=== PATIENT | male | born 1975 | race Caucasian/White ===

== ENCOUNTER → 2018-06-05 08:01 | Outpatient (CLI) | payer OTHER, SELFPAY ==
--- NOTE | 2018-06-05 15:51 | NEURO ---
NCS and/or EMG Patient Report Ordering Doctor: Matthew Burk DATE OF SERVICE: 06/05/18 Fede Pedersen is a 42-year-old male presents for electrodiagnostic testing of the upper limbs he has chief complaint of numbness and tingling in both hands Electrodiagnostic findings: On nerve conduction study, the median motor nerve demonstrates normal distal latency, amplitude and conduction velocity bilaterally normal ulnar motor response bilaterally median and ulnar F waves are normal. Sensory responses within normal limits. Needle EMG testing shows no evidence of denervation in any muscles tested. Electrodiagnostic impression: This is a normal electrodiagnostic study of the upper limbs. There is no electrodiagnostic evidence for peripheral neuropathy, including carpal tunnel syndrome. There is no electrodiagnostic evidence for cervical radiculopathy. If there are any further questions, please do not hesitate to contact me.
== END ==
PROVIDERS: Family Provider Family Medicine; PCP Family Medicine; Visit Provider Family Medicine
DX: R29.898 Other symptoms and signs involving the musculoskeletal system (principal)
CPT/HCPCS: 95886; 95912

== ENCOUNTER → 2018-07-30 06:23 | Outpatient (CLI) | payer OTHER, SELFPAY ==
--- NOTE | 2018-07-30 06:36 | RAD_ITS ---
STUDY: X-RAY - LUMBAR SPINE REASON FOR EXAM: Male, 43 years old. Pain while sitting TECHNIQUE: 6 view(s) of the lumbar spine were obtained. COMPARISON: None FINDINGS: Normal lumbar lordosis. There is no substantial scoliosis. There is a normal alignment of the vertebrae. There is mild spondylosis. There is no significant disc space narrowing. Normal disc space heights. The soft tissue structures are unremarkable. RAD/L/S Spine Min 4 Views IMPRESSION: Mild multilevel degenerative change. Electronically Signed: Marie Medina MD at 2:54 EDT Tel , Service support ,
--- NOTE | 2018-07-30 06:36 | RAD_ITS ---
STUDY: X-RAY - CERVICAL SPINE REASON FOR EXAM: Male, 43 years old. Pain TECHNIQUE: 6 view(s) of the cervical spine were obtained. COMPARISON: None FINDINGS: There are degenerative changes of the anterior atlantoaxial articulation. Normal odontoid process. There is straightening of the normal cervical lordosis. There is spondylosis. Most significant at C6-C7. Normal disc space heights. Normal visualized intervertebral neuroforamina. The soft tissue structures are unremarkable. RAD/Cerv Spine 4 or 5 Views IMPRESSION: Straightening of the physiologic lordosis which can be associated with muscle spasm or pain. Multilevel degenerative change with arterial osteophyte C6-C7. Electronically Signed: Marie Medina MD at 2:16 EDT Tel , Service support ,
[2018-07-30 07:38] LABS: Erythrocyte Sedimentation Rate < 1 mm/hr (0-15)
[2018-07-30 07:52] LABS: CPK Total, Creatine Kinase 96 U/L (39-308); CRP < 2.90 mg/L (0.0-3.0); Thyroid Stim Hormone (TSH) 2.06 uIU/mL (0.358-3.74)
[2018-07-30 08:16] LABS: Vitamin D,25 Hydroxy 29.3 ng/mL (29.95-100.01)
[2018-07-31 15:14] LABS: ANTINUCLEAR ANTIBODIES DIRECT Negative (Negative)
== END ==
PROVIDERS: Physical Medicine & Rehabilitation; Family Provider Family Medicine; PCP Family Medicine; Referring Provider Family Medicine; Visit Provider Family Medicine
DX: M54.2 Cervicalgia (principal); M79.10 Myalgia, unspecified site
CPT/HCPCS: 36415; 72050; 72110; 82306; 82550; 84443; 85652; 86038; 86140

== ENCOUNTER → 2018-10-03 12:39 | Outpatient (CLI) | payer OTHER, SELFPAY ==
--- NOTE | 2018-10-03 12:46 | CT_ITS ---
STUDY: CT BRAIN WITHOUT CONTRAST REASON FOR EXAM: Male, 43 years old. Swelling behind the left ear. Painful to touch. RADIATION DOSAGE (If Supplied By Facility): CTDIvol = ( 60.81 ) mGy, DLP = ( 4450.77 ) mGycm TECHNIQUE: Transaxial CT imaging of the brain was performed without administration of intravenous contrast material. Individualized dose optimization techniques were used for this CT. COMPARISON: None. FINDINGS: Normal soft tissue structures. Normal calvarium. Normal size ventricles and extra-axial spaces for the patient's age. Normal white matter tracts of the cerebral hemispheres. Normal basal ganglia and thalami. Normal brainstem. Normal cerebellum. There is no intracranial hemorrhage. There are no findings of an acute ischemic infarction. Normal visualized paranasal sinuses. CT/Brain/Head without Contrast IMPRESSION: Normal unenhanced CT scan of the brain. Electronically Signed: Giuseppe Cunningham MD at 15:10 EST Tel [phone], Service support ,
--- OUTSIDE RECORDS SUMMARY | 2018-11-19 08:00 | XMS RPT_ITS ---
:1975 Author Organization [place] Care Team Providers Name Role Phone Matthew Burk Attending Unavailable Matthew Burk Referring Unavailable Matthew Burk Primary Care Unavailable Matthew Burk Attending Unavailable Matthew Burk Referring Unavailable Matthew Burk Primary Care Unavailable ARAMIS DANIEL Attending Unavailable ARAMIS DANIEL Referring Unavailable Matthew Burk Primary Care Unavailable ARAMSI DANIEL Attending Unavailable ARAMIS DANIEL Referring Unavailable Matthew Burk Primary Care Unavailable PROBLEMS PROBLEMS DATE TYPE CONDITION / CODE ATTENDING STATUS SOURCE 11/01/2018 Unknown M54.2 - ARAMIS DANIEL Active [place] [facility]ervical[facility] / Community M54.2(ICD-10) Hospital Repository 11/01/2018 Unknown M54.9 - NAFARAMIS SHOEMAKER Active [place] Dorsalgia, Community unspecified / Hospital M54.9(ICD-10) Repository PROCEDURES PROCEDURES No Procedure Records FoundRESULTS RESULTS INITAL EVALUATION (1) Observed: 10/07/2018 Status: F Source: [place] - PT 6:45 AM [facility] REPOSITORY [facility] [address] [place] [address] Fax REHABILITATION SERVICES INITIAL EVALUATION MR#: [id number] Acct: [id number] Name: LOPEZ PEDERSEN Rep #: [id number] : 1975 43 From: Lukas Mas DPT, OCS, CSCS Referring Dr.: ARAMIS DANIEL Status: REG RCR Insurance: [employer] SELF PAY INSURANCE Patient's Visit Information LOPEZ PEDERSEN is a 43 year old M referred to Physical Therapy by Aramis Daniel with a diagnosis of neck and LBP. Date of Evaluation: 10/04/18 Physical Therapist: Lukas Mas DPT, OCS, CSCS - Visit Plan Frequency: 3x /Week Duration: 4-6 Weeks Plan: 3x/week for 3-6 weeks for.. 1. [place] based ext ex for LB and neck with progression of forces, mobs ext necka dn LB as needed. 2. Posture and body mechanics progressing to strengthening to HEP. 3. Modalities for STM L neck and ES with MH for LB or neck if necessary. - Subjective Findings: Has necka nd LBP. It is constant. Been there a while(years) adn is building. X ray showed OA but nothing else. did CT scan of head but no results yet. Has had Carpal tunnel test which was fine but L arm seems to have poor circulation and is always cold and gets numbness in last two fingers intermittently one time per month. Neck Pain is L sided into UT. It is 2-3/10 and is on ibuprofen, previously4-5/10. Worse with heavy physical activity. LBP constant at 3/10 and worse driving. R leg on occasion is numb a couple times per week. Sleep is interrupted as he wakes up now and then with neck pain a couple times per week. 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 Is sitting more this time of year. Also up and around during the year and hasn't noticed wither worse. Maybe worse when on large equipment. Basic ADLs are OK. Activities are normal. Enjoys farming at home and has 2 and 4 yo. Worse if does a lot at home. Better when sitting around. No problem coughing or sneezing. No bowel or bladder problems. - Pain neck pain Pain Intensity (Out of 10): 3 Pain Intensity Range: 2, 3 LBP Pain Intensity (Out of 10): 3 Pain Intensity Range: 3, 4 - Objective C/S AROM ext painful 48 and L rotation 52 painful, R rotation 80, SB painful to the left. Flexion full. LB AROM : ext max limited lower segments flex adn ext and painful ext. SB avoids L45S1 movements but not painful. reflexes bi and tri and patella and achilles 2/3. Sensation WNL in UE and LE to gross light touch today. Strength is 5/5 LE adn 4+ UE except triceps whcih is 4/5. UE AROM WFL adn LE AROM WFL, tightness in pecs and HS and quad. Repeated motion c/s: c/s protrusion: NE. c/s retraction: B motion rot and ext adn better tricep strength. LB repeated motion: PPU...Better motion adn pain. + L c/s compression. - slump and SLR test. - Goals Goal 1:: LB and neck ROM fulla dn without pain Goal Time Frame: 4-6 Weeks Goal 2:: Sleep without interruption to pain at night. Goal Time Frame: 4-6 Weeks Goal 3:: Pt I in approp ex and body mechanics to minimize future problems Goal Time Frame: 4-6 Weeks Goal 4:: Pt feel 90% better in necka dn LB and arm and leg numbness abolished. Goal Time Frame: 4-6 Weeks - Rehabilitation Potential Physical Therapy Diagnosis: Likely discal pathology LB and neck Rehabilitation Potential: Fair - Anticipated Interventions Patient/Client Instruction: Educate patient on: Condition, Plan of Care For the Purpose of:: To decrease pain, To increase ROM, To increase tolerance to activity/condition/position Therapeutic Exercise to Include: Strength training, Flexibilty training, Dynamic Lumbar Stabilization, [place] Exercises For the Purpose of:: To decrease pain, To increase ROM, To increase tolerance to activity/condition/position, To improve ability of physical actions for home/community/work/leisure Manual Therapy Techniques to Include: Mobilization, Soft tissue mobilization Comment: ext necka nd LB grade up to 4 For the Purpose of:: To decrease pain, To increase ROM TENS: Yes Thermo therapy (hot pack): Yes For the Purpose of:: To decrease pain Thank you for the opportunity to evaluate your patient. For Medicare and Medicare HMO plans, please review the plan of care and approve it. It will need to be FAXED BACK to us at [phone] for Medicare purposes. For Medicare only, by signing this I certify the plan of care. Please let me know if there are questions or concerns regarding this plan of care. Physician Signature: Date: <Electronically signed by Lukas Mas DPT, OCS, CSCS> 10/07/18 0645 CC: ARAMIS DANIEL; Matthew Burk MD EBG Signed BRAIN/HEAD WITHOUT Observed: 10/03/2018 Status: F Source: [place] CONTRAST 12:46 PM [facility] REPOSITORY [facility] Imaging Services [address] [place] [address] Brain/Head without Contrast MR#: [id number] Acct: [id number] Name: TARAHHYACINTH STRONGRADHA Lam Rep #: [id number] : 1975 M 43 From: Giuseppe Cunningham MD PCP: Matthew Burk MD Status: REG CLI Study: Brain/Head without Contrast Date of Exam: 10/03/18 Exam# [id number] Ordering Dr: Aramis Daniel STUDY: CT BRAIN WITHOUT CONTRAST REASON FOR EXAM: Male, 43 years old. Swelling behind the left ear. Painful to touch. RADIATION DOSAGE (If Supplied By Facility): CTDIvol = ( 60.81 ) mGy, DLP = ( 4450.77 ) mGycm TECHNIQUE: Transaxial CT imaging of the brain was performed without administration of intravenous contrast material. Individualized dose optimization techniques were used for this CT. COMPARISON: None. FINDINGS: Normal soft tissue structures. Normal calvarium. Normal size ventricles and extra-axial spaces for the patient's age. Normal white matter tracts of the cerebral hemispheres. Normal basal ganglia and thalami. Normal brainstem. Normal cerebellum. There is no intracranial hemorrhage. There are no findings of an acute ischemic infarction. Normal visualized paranasal sinuses. CT/Brain/Head without Contrast IMPRESSION: Normal unenhanced CT scan of the brain. Electronically Signed: Giuseppe Cunningham MD at 15:10 EST Tel [phone], Service support , CC: ARAMIS DANIEL; Matthew Burk MD [employer] Firer: Signed CERV SPINE 4 OR 5 Observed: 07/30/2018 Status: F Source: [place] VIEWS 6:36 AM [facility] REPOSITORY [facility] Imaging Services [address] [place] [address] Cerv Spine 4 or 5 Views MR#: [id number] Acct: [id number] Name: LOPEZ PEDERSEN Rep #: [id number] : 1975 M 43 From: Marie Medina MD PCP: Matthew Burk MD Status: REG CLI Study: Cerv Spine 4 or 5 Views Date of Exam: 07/30/18 Exam# [id number] Ordering Dr: Matthew Burk MD STUDY: X-RAY - CERVICAL SPINE REASON FOR EXAM: Male, 43 years old. Pain TECHNIQUE: 6 view(s) of the cervical spine were obtained. COMPARISON: None FINDINGS: There are degenerative changes of the anterior atlantoaxial articulation. Normal odontoid process. There is straightening of the normal cervical lordosis. There is spondylosis. Most significant at C6-C7. Normal disc space heights. Normal visualized intervertebral neuroforamina. The soft tissue structures are unremarkable. RAD/Cerv Spine 4 or 5 Views IMPRESSION: Straightening of the physiologic lordosis which can be associated with muscle spasm or pain. Multilevel degenerative change with arterial osteophyte C6-C7. Electronically Signed: Marie Medina MD at 2:16 EDT Tel , Service support , CC: Matthew Burk MD [employer] Firer: Signed L/S SPINE MIN 4 Observed: 07/30/2018 Status: F Source: [place] VIEWS 6:36 AM [facility] REPOSITORY [facility] Imaging Services [address] [place] [address] L/S Spine Min 4 Views MR#: [id number] Acct: [id number] Name: ANSHULLOPEZ Genaro Rep #: [id number] : 1975 M 43 From: Marie Medina MD PCP: Matthew Burk MD Status: REG CLI Study: L/S Spine Min 4 Views Date of Exam: 07/30/18 Exam# [id number] Ordering Dr: Matthew Burk MD STUDY: X-RAY - LUMBAR SPINE REASON FOR EXAM: Male, 43 years old. Pain while sitting TECHNIQUE: 6 view(s) of the lumbar spine were obtained. COMPARISON: None FINDINGS: Normal lumbar lordosis. There is no substantial scoliosis. There is a normal alignment of the vertebrae. There is mild spondylosis. There is no significant disc space narrowing. Normal disc space heights. The soft tissue structures are unremarkable. RAD/L/S Spine Min 4 Views IMPRESSION: Mild multilevel degenerative change. Electronically Signed: Marie Medina MD at 2:54 EDT Tel , Service support , CC: Matthew Burk MD [employer] Firer: Signed ERYTHROCYTE SED RATE Collected: 07/30/2018 Status: F Source: [place] 6:29 AM [facility] REPOSITORY TYPE CODE TESTS RESULT OUT OF RANGE REFERENCE UNITS LAB L102.0000 0-15 mm/hr Normal SED RATE < 1 Performed By: #### L101.9900 #### [facility] [address] [place], [place], [address] CPK TOTAL, CREATINE Collected: 07/30/2018 Status: F Source: [place] KINASE 6:29 AM [facility] REPOSITORY TYPE CODE TESTS RESULT OUT OF RANGE REFERENCE UNITS LAB L501.3620 39-308 U/L Normal CPK TOTAL 96 Performed By: #### L501.3620, L501.6710, L501.9520 #### [facility] [address] [place], [place], [address] CRP Collected: 07/30/2018 Status: F Source: [place] 6:29 AM [facility] REPOSITORY TYPE CODE TESTS RESULT OUT OF RANGE REFERENCE UNITS LAB L501.6710 0.0-3.0 mg/L Normal < 2.90 C-REACTIVE PROT Result Comment: C-Reactive Protein (CRP) provides useful information for the diagnosis, therapy and monitoring of inflammatory processes and associated diseases. For the evaluation of Relative Risk for Cardiovascular Disease, a High Sensitivity CRP (HSCRP) should be ordered. Performed By: #### L501.3620, L501.6710, L501.9520 #### [facility] [address] [place], [place], [address] THYROID STIM HORMONE Collected: 07/30/2018 Status: F Source: [place] (TSH) 6:29 AM [facility] REPOSITORY TYPE CODE TESTS RESULT OUT OF RANGE REFERENCE UNITS LAB L501.9520 0.358-3.74 uIU/mL Normal TSH 2.06 Performed By: #### L501.3620, L501.6710, L501.9520 #### [facility] [address] [facility] [place], [address] VITAMIN D,25 HYDROXY Collected: 07/30/2018 Status: F Source: [place] 6:29 AM [facility] REPOSITORY TYPE CODE TESTS RESULT OUT OF REFERENCE UNITS RANGE LAB L506.1000 29.95-100.01 ng/mL Low Vitamin D 29.3 25-OH Result Comment: Vitamin D 25(OH) Status Range Deficiency <20 ng/mL (50nmol/L) Insuffciency 20 - 30 ng/mL (50 - 75 nmol/L) Sufficiency 30 - 100 ng/mL (75 - 250 nmol/L) Toxicity >100 ng/mL (>250 nmol/L) Performed By: #### L506.1000 #### [facility] [address] [place] [address] [place], [address] ANTINUCLEAR ANTIBODIES Collected: 07/30/2018 Status: F Source: [place] DIRECT 6:29 AM [facility] REPOSITORY TYPE CODE TESTS RESULT OUT OF RANGE REFERENCE UNITS LAB L3100.5475 Negative Normal Negative GAL-DIRECT Result Comment: Performed at: - [facility] [address] [id number] Sustainable Systems Analyst: Roberto Salazar PhD, Phone: [phone] Performed By: #### L3100.5475 #### [facility] (refer to report for specific site) refer to report for address and phone number NCS AND/OR EMG Observed: 06/05/2018 Status: F Source: [place] PATIENT 4:10 PM [facility] REPOSITORY [facility] Pulmonary Services/Neurology [address] [place] [address] MR#: [id number] Acct: [id number] Name: LOPEZ PEDERSEN Rep #: [id number] : 1975 42 From: Thomas Biggs MD Referring Dr: Matthew Burk MD Status: REG CLI Ordering Dr: Date: Location: [facility] Sex: M C NCS and/or EMG Patient Report Ordering Doctor: Matthew Burk DATE OF SERVICE: 06/05/18 Lopez Pedersen is a 42-year-old male presents for electrodiagnostic testing of the upper limbs he has chief complaint of numbness and tingling in both hands Electrodiagnostic findings: On nerve conduction study, the median motor nerve demonstrates normal distal latency, amplitude and conduction velocity bilaterally normal ulnar motor response bilaterally median and ulnar F waves are normal. Sensory responses within normal limits. Needle EMG testing shows no evidence of denervation in any muscles tested. Electrodiagnostic impression: This is a normal electrodiagnostic study of the upper limbs. There is no electrodiagnostic evidence for peripheral neuropathy, including carpal tunnel syndrome. There is no electrodiagnostic evidence for cervical radiculopathy. If there are any further questions, please do not hesitate to contact me. 06/05/18 1610 <Electronically signed by Thomas Biggs MD> Date Thomas Biggs MD CC: Thomas Biggs; Matthew Burk MD Date Dictated: 06/05/18 155 Date Transcribed: 06/05/181550 [employer] Firer: ORION Signed ALLERGIES ALLERGIES DATE TYPE / CODE NAME / CODE REACTION SEVERITY SOURCE 07/21/2015 Drug No Known Unknown [facility] Allergy/4160 Allergies/F00 Hospital 15213(SNOMED 9043329(RXNOR Repository CT) M) ENCOUNTERS ENCOUNTERS ADMIT/DISCHARGE ACCOUNT ADMITTING ENCOUNTER LOCATION SOURCE NUMBER CLASS 11/01/2018 [id number] Ambulatory [place] [facility] ing:PT Repository 10/03/2018 [id number] Ambulatory [place] [facility] ing:CT Repository 07/30/2018 [id number] Ambulatory [place] [facility] ing:LAB Repository 06/05/2018 [id number] Ambulatory [place] 1 [facility] ing:PSN Repository PAYERS PAYERS ENCOUNTER GUARANTOR PAYER SUBSCRIBER SOURCE 11/01/2018 LOPEZ Lam Primary LOPEZ Knight [id number] Insurance:[place] ANDREWSB: [facility] RDAPPLE Number: [id number] [id number] Repository [address]Bwo: (330) Date:3496-00-92[phone] (HP) [id number] [address]YS: 11/01/2018 Secondary NOT GIVENUNK [place] Insurance:SELF PAY [facility]: Effective Repository Date:2018-09-27 10/03/2018 LOPEZ D Primary LOPEZ D [place] [id number] Insurance:AETNAPolicy HOFSTETTERDOB: Community MIKEY RDAPPLE Number: [id number] [id number] Repository [address]Moo: (330) Date:5098-02-95TP [phone] (HP) [id number] [place] [address]WA: 10/03/2018 Secondary NOT GIVENUNK [place] Insurance:SELF PAY [facility] Number: Effective Repository Date:2018-09-24 07/30/2018 LOPEZ D Primary LOPEZ D [place] [id number] Insurance:AETNAPolicy HOFSTETTERDOB: Community MIKEY RDAPPLE Number: [id number] [id number] Repository [address]Myz: (330) Date:2401-60-79[phone] (HP) [id number] [place] [address]QU: 07/30/2018 Secondary NOT GIVENUNK [place] Insurance:SELF PAY [facility] Number: Effective Repository Date:2018-07-30 06/05/2018 LOPEZ D Primary LOPEZ D [place] [id number] Insurance:AETNAPolicy HOFSTETTERDOB: Community MIKEY RDAPPLE Number: [id number] [id number] Repository [address]Jst: (330) Date:0489-52-35ZK [phone] (HP) [id number] [place] [address]RG: 06/05/2018 Secondary NOT GIVENUNK [place] Insurance:SELF PAY [facility] Number: Effective Repository Date:2018-02-18
== END ==
PROVIDERS: Family Provider Family Medicine; PCP Family Medicine; Referring Provider Physical Medicine & Rehabilitation; Visit Provider Physical Medicine & Rehabilitation
DX: H70.92 Unspecified mastoiditis, left ear (principal)
CPT/HCPCS: 70450

== ENCOUNTER 2018-11-15 08:30 | Outpatient (RCR) | payer OTHER, SELFPAY ==
--- NOTE | 2018-10-04 07:55 | HP.PTEVAL ---
Patient's Visit Information LOPEZ LANDERS is a 43 year old M referred to Physical Therapy by Aramis Tim with a diagnosis of neck and LBP. Date of Evaluation: 10/04/18 Physical Therapist: Lukas Mas, JOSE FRANCISCOT, OCS, CSCS - Visit Plan Frequency: 3x /Week Duration: 4-6 Weeks Plan: 3x/week for 3-6 weeks for.. 1. [place] based ext ex for LB and neck with progression of forces, mobs ext necka dn LB as needed. 2. Posture and body mechanics progressing to strengthening to HEP. 3. Modalities for STM L neck and ES with MH for LB or neck if necessary. - Subjective Findings: Has necka nd LBP. It is constant. Been there a while(years) adn is building. X ray showed OA but nothing else. did CT scan of head but no results yet. Has had Carpal tunnel test which was fine but L arm seems to have poor circulation and is always cold and gets numbness in last two fingers intermittently one time per month. Neck Pain is L sided into UT. It is 2-3/10 and is on ibuprofen, previously4-5/10. Worse with heavy physical activity. LBP constant at 3/10 and worse driving. R leg on occasion is numb a couple times per week. Sleep is interrupted as he wakes up now and then with neck pain a couple times per week. 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 Is sitting more this time of year. Also up and around during the year and hasn't noticed wither worse. Maybe worse when on large equipment. Basic ADLs are OK. Activities are normal. Enjoys farming at home and has 2 and 4 yo. Worse if does a lot at home. Better when sitting around. No problem coughing or sneezing. No bowel or bladder problems. - Pain neck pain Pain Intensity (Out of 10): 3 Pain Intensity Range: 2, 3 LBP Pain Intensity (Out of 10): 3 Pain Intensity Range: 3, 4 - Objective C/S AROM ext painful 48 and L rotation 52 painful, R rotation 80, SB painful to the left. Flexion full. LB AROM : ext max limited lower segments flex adn ext and painful ext. SB avoids [id number] movements but not painful. reflexes bi and tri and patella and achilles 2/3. Sensation WNL in UE and LE to gross light touch today. Strength is 5/5 LE adn 4+ UE except triceps whcih is 4/5. UE AROM WFL adn LE AROM WFL, tightness in pecs and HS and quad. Repeated motion c/s: c/s protrusion: NE. c/s retraction: B motion rot and ext adn better tricep strength. LB repeated motion: PPU...Better motion adn pain. + L c/s compression. - slump and SLR test. - Goals Goal 1:: LB and neck ROM fulla dn without pain Goal Time Frame: 4-6 Weeks Goal 2:: Sleep without interruption to pain at night. Goal Time Frame: 4-6 Weeks Goal 3:: Pt I in approp ex and body mechanics to minimize future problems Goal Time Frame: 4-6 Weeks Goal 4:: Pt feel 90% better in necka dn LB and arm and leg numbness abolished. Goal Time Frame: 4-6 Weeks - Rehabilitation Potential Physical Therapy Diagnosis: Likely discal pathology LB and neck Rehabilitation Potential: Fair - Anticipated Interventions Patient/Client Instruction: Educate patient on: Condition, Plan of Care For the Purpose of:: To decrease pain, To increase ROM, To increase tolerance to activity/condition/position Therapeutic Exercise to Include: Strength training, Flexibilty training, Dynamic Lumbar Stabilization, [place] Exercises For the Purpose of:: To decrease pain, To increase ROM, To increase tolerance to activity/condition/position, To improve ability of physical actions for home/community/work/leisure Manual Therapy Techniques to Include: Mobilization, Soft tissue mobilization Comment: ext necka nd LB grade up to 4 For the Purpose of:: To decrease pain, To increase ROM TENS: Yes Thermo therapy (hot pack): Yes For the Purpose of:: To decrease pain Thank you for the opportunity to evaluate your patient. For Medicare and Medicare HMO plans, please review the plan of care and approve it. It will need to be FAXED BACK to us at [phone] for Medicare purposes. For Medicare only, by signing this I certify the plan of care. Please let me know if there are questions or concerns regarding this plan of care. Physician Signature: Date:
--- NOTE | 2018-11-15 09:00 | HP.PTREVAL_ITS ---
Aramis Tim, It has been my pleasure to treat LOPEZ LANDERS over the last 13 visits for neck and LBP. Please see the progress note below for an update on the physical therapy plan of care! Subjective: Travelling much better this time with back. Back is best it has been in long time. Pain 1/10 constantly last couple weeks. Slightly worse with stress adn job demands since returning. Sleep is good, better. Tolerating things much better. 2/10 this week in morning which is the worst. Exercises help manage pain and bring it down to /10. To doctor next Sunday. Will have CT adn blood work. Objective/Function: c/s ROM: 65 R rot, 60 L rot, 50 ext. 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 L/S ext still mod imited in ext adn central pain, others tight but not painful. Strength UE adn LE is good. OVERALL STILL CONSTANT PAIN AND STIFF. ROM NECK ADN LB NOT COMING ALONG QUICKLY. 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 Plan Plan: PT TO F/U WITH DOCTOR NEXT WEEK FOR OTHER MEDICAL OPTIONS. CAN CONTINUE WITH PT IF DESIRED BY DOCTORS FOR 2X/WEEK INCREASE AGGRESSIVENESS OF GYMS TRENGTH, FLEXIBILITY AND EXT MOBS NECK AND LB OR POOL BASED THERAPY. Pt to call after doctor visit. Goals Goal 1:: LB and neck ROM fulla dn without pain Goal Time Frame: 4-6 Weeks Goal Progress: Not Progressing Goal 2:: Sleep without interruption to pain at night. Goal Time Frame: 4-6 Weeks Goal Progress: Goal Met Goal 3:: Pt I in approp ex and body mechanics to minimize future problems Goal Time Frame: 4-6 Weeks Goal Progress: Goal Met Goal 4:: Pt feel 90% better in necka dn LB and arm and leg numbness abolished. Goal Time Frame: 4-6 Weeks Goal Progress: Progressing, slowly Goal 5:: Full c/s rotation without feeling blocked adn full ext to work without increasing symptoms. Goal Time Frame: 2-4 Weeks Goal Progress: Not Progressing Anticipated Interventions Patient/Client Instruction: Educate patient on: Condition, Plan of Care For the Purpose of:: To decrease pain, To increase ROM, To increase tolerance to activity/condition/position Therapeutic Exercise to Include: Strength training, Flexibilty training, Dynamic Lumbar Stabilization, [place] Exercises For the Purpose of:: To decrease pain, To increase ROM, To increase tolerance to activity/condition/position, To improve ability of physical actions for home/community/work/leisure Manual Therapy Techniques to Include: Mobilization, Soft tissue mobilization Comment: ext necka nd LB grade up to 4 For the Purpose of:: To decrease pain, To increase ROM TENS: Yes Thermo therapy (hot pack): Yes For the Purpose of:: To decrease pain Please do not hesitate to contact me at [phone] by phone or if you have questions or concerns regarding this new plan of care! Sincerely, Lukas Mas, DPT, OCS, CSCS
--- NOTE | 2018-11-26 10:23 | HP.PT.NRP ---
HP - Discharge Summary (1) - Patient Information LOPEZ LANDERS was seen in my office for initial evaluation on 10/04/18. The following Plan of Care was established for this patient: Initial Frequency: 3x /Week Initial Duration: 4-6 Weeks - Anticipated Interventions Patient/Client Instruction: Educate patient on: Condition, Plan of Care For the Purpose of:: To decrease pain, To increase ROM, To increase tolerance to activity/condition/position Therapeutic Exercise to Include: Strength training, Flexibilty training, Dynamic Lumbar Stabilization, Javier Exercises For the Purpose of:: To decrease pain, To increase ROM, To increase tolerance to activity/condition/position, To improve ability of physical actions for home/community/work/leisure Manual Therapy Techniques to Include: Mobilization, Soft tissue mobilization Comment: ext necka nd LB grade up to 4 For the Purpose of:: To decrease pain, To increase ROM TENS: Yes Thermo therapy (hot pack): Yes For the Purpose of:: To decrease pain This patient was last seen in our office 11/15/18. Pertinent comments regarding their Physical therapy will appear below: pt seen for 13 visits and made minimal progress. Rechecked last visit and sent back to doctor. Pt has called to state that doctor wants no more PT and to be discharged. At this point I will be discontinuing this patient from physical therapy. I would be happy to see this patient again in the future if found appropriate by the physician. Thank you! Lukas Mas, DPT, OCS, CSCS
== END 2018-11-15 19:00 | disposition home or self-care (01) ==
LOC: PT 08:30
PROVIDERS: Family Provider Family Medicine; PCP Family Medicine; Referring Provider Physical Medicine & Rehabilitation; Visit Provider Physical Medicine & Rehabilitation
DX: M54.9 Dorsalgia, unspecified (principal); M54.2 Cervicalgia
CPT/HCPCS: 97110; 97162; 97530

== ENCOUNTER 2020-01-09 08:22 | Day surgery (SDC) | payer OTHER, SELFPAY ==
--- NOTE | 2020-01-02 04:47 | HP_ITS ---
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 Required: No Is patient in pain?: No Allergies No Known Allergies Allergy (Verified 01/02/20 08:27) Medications magnesium 30 mg tablet 30 mg PO DAILY 09/14/19 [History Confirmed 01/02/20] [facility] Medical History Back pain (Acute) Hay fever (Acute) Hemorrhoids (Acute) Hx of chest pain (Acute) Seasonal allergies (Acute) Shoulder pain (Acute) hx of normal stress test (Acute) Surgical History S/P appendectomy (Acute) S/P tonsillectomy (Acute) Status post arthroscopy of right shoulder (Acute) Family History Father Diabetes Heart disease Social History (Updated 01/02/20 @ 16:[address] Dennis Gómez MD) Smoking Status: Never smoker alcohol intake: never HPI HPI HPI: LOPEZ LANDERS, is a 44 M who presents to the office today for HPI HPI Surgical H&P: Yes HPI: LOPEZ LANDERS, is a 44 M who presents to the office today for rectal bleeding and GERD. The patient notes that he has been having rectal bleeding for about a year. He has taken unkl-ukr-twgbkdi hemorrhoid cream and he reports this is helped. He reports no pain during defecation. He says the blood is bright red. He denies any abdominal pain. He is never had a colonoscopy. The patient also notes that he has had longstanding GERD and takes occasional PPI. ROS General General: Yes fatigue; no weight change Musc Musculoskeletal: Yes back problems and arthritis Cardio Cardiovascular: No murmur, pacemaker, heart disease, atrial fibrillation, high blood pressure, heart attack, heart stent, palpitations, shortness of breat with exertion or chest pain Psych Psychiatric: No depression or anxiety Resp Respiratory: No shortness of breath, No sleep apnea, No cough, No COPD, No asthma, No emphysema, No wheezing Gastro Gastrointestinal: No abdominal pain, No nausea or vomiting, Yes diarrhea, No constipation, Yes blood in stool, Yes acid reflux, Yes hemorrhoids, No ulcers, No gallbladder problem, No black,tarry stools Brian Hematologic: No blood thinners Exam Const General: cooperative Orientation: alert, oriented x3 Resp Effort & Inspection: normal respiratory effort Auscultation: clear to auscultation bilaterally Cardio Rate: regular rate Rhythm: regular rhythm Heart Sounds: no murmurs GI Inspection: non-distended Palpation: soft, nontender Rectal Exam: visual inspection normal, normal sphincter tone, No hemorrhoids Assessment & Plan Problems 1. Rectal bleeding K62.5 2. GERD (gastroesophageal reflux disease) K21.9 Plan The patient has longstanding GERD and would like EGD at the same time of his colonoscopy. The patient did not have any hemorrhoids or fissure on rectal exam. I do recommend colonoscopy to Rule out malignancy as a source of his rectal bleeding. I explained endoscopy in detail to the patient. I explained the risks including but not limited to stroke or heart attack with anesthesia, perforation of the GI tract, bleeding, infection. I explained that any of these could necessitate further emergency surgery. The patient understands and all questions were answered sufficiently. The patient wishes to proceed with procedure. Dennis Gómez MD Pager: [facility] [address] [place] [address], [address] [place] [address] Office: Orders Orders: Colonoscopy Today K62.5 EGD Today K21.9 Coding Level of Care Code Off vis,new,level 3 Diagnoses Rectal bleeding K62.5 GERD (gastroesophageal reflux disease) K21.9 01/02/20 7685 <Electronically signed by Dennis martin MD> Date _ Dennis Gómez MD I have re-examined the patient. There are no clinical changes since date of exam.
[2020-01-02 08:27] VITALS: BMI 31.8
--- NOTE | 2020-01-09 | IMM_PTH ---
PATIENT: LOPEZ LANDERS LOC: EN U#:[id number] AGE/SX: 44/M ROOM: RE01/09/[address]: Dr. Dennis Gómez MD : 1975 BED: DIS: 01/09/2020 SPEC #: [id number] RECD: 01/12/20 14:44 STATUS: TABATHA REMj #: [id number] OMAR: 01/09/20 00:[address]: Dennis Gómez DEPT: IMMUNOHISTOCHEMISTRY RECD BY: Bre Funes ENTERED: 01/12/20 14:45 SP TYPE: IMMUNO OTHR DR: Dr. Matthew Burk MD Tissues: A - Stomach, NOS Procedures: H Pylori (initial) PHYSICIAN & INSTITUTION [place] [address] SPECIMEN INFORMATION: Tissue Source: A - Antrum biopsy Clinical Info: Rectal bleeding, GERD Specimen Number: [id number] CPT code: 95166 METHODOLOGY: Deparaffinized sections of prefer/formalin-fixed tissue or PAP/DQ stained slides are incubated with monoclonal/polyclonal antibodies/oligonucleotide probes. Localization is made via biotin free immunoperoxidase method. Appropriate controls are performed and reacted as expected. Results on target cell population are indicated in the following table: RESULTS: ANTIBODY / CLONE RESULT Block A H Pylori (polyclonal) negative These tests were developed and their performance characteristics determined by [facility]. They may not have been cleared or approved by the U.S. Food and Drug Administration. The FDA has determined that such clearance or approval is not necessary. The above immunohistochemical/dualISH markers are ordered and reviewed by the Pathologist. INTERPRETATION: A. Antrum biopsy: Negative for Helicobacter pylori organisms. SJ:analilia 01/13/20
[2020-01-09 08:40] VITALS: BP 141/91; PULSE 91; RESP 16; TEMP 36.3; O2SAT 96; BMI 33.6
[2020-01-09] MEDS: Lactated Ringers 1,000 ML 100 ML IV (08:44)
--- NOTE | 2020-01-09 09:30 | EGD_PTH ---
PATIENT: LOPEZ LANDERS LOC: EN U#:[id number] AGE/SX: 44/M ROOM: RE01/09/[address]: Dr. Dennis Gómez MD : 1975 BED: DIS: 01/09/2020 SPEC #: [id number] RECD: 01/09/20 10:07 STATUS: TABATHA MAN #: [id number] OMAR: 01/09/20 09:[address]: Dennis Gómez DEPT: SURGICAL PATHOLOGY RECD BY: Cornell Ross ENTERED: 01/09/20 10:30 SP TYPE: EGD BIOPSY OT DR: Dr. Matthew Burk MD Tissues: A - Gastric mucous membrane B - Gastric mucous membrane Procedures: Special Stain Group II Surgery Specimen Level IV Alcian Blue/PAS (control) HEADER OPERATION: Colonoscopy, EGD ([facility] [place]) PRE-OP DIAGNOSIS: Rectal bleeding, GERD TISSUE SUBMITTED: A - Antrum biopsy, B - GE junction biopsy MICROSCOPIC DIAGNOSIS A. Antrum, biopsy: Mild gastritis. See microscopic description and comment. B. GE junction, biopsy: Fragments of gastroesophageal mucosa with mild chronic inflammation. Intestinal metaplasia (goblet cell metaplasia) is not identified. See comment. SJ:analilia 01/12/20 COMMENT A. The results of immunohistochemistry for Helicobacter pylori will be reported separately ([id number]). B. Specimen predominantly consists of squamous epithelium. Alcian blue/PAS stain with matched control is used in the evaluation of the specimen. MICROSCOPIC DESCRIPTION Slides are reviewed. A. The specimen shows fragments of gastric mucosa with chronic inflammatory cell infiltrates in the lamina propria consisting of lymphocytes and plasma cells, consistent with mild chronic gastritis. GROSS DESCRIPTION A - Received in fixative is one container labeled with the patient's name and designated antrum biopsy. The specimen consists of two irregular fragments of light gillette soft tissue that in aggregate measure 0.4 x 0.2 x 0.1 cm. The specimen is totally submitted in one cassette. B - Received in fixative is one container labeled with the patient's name and designated GE junction biopsy. The specimen consists of multiple irregular fragments of light gillette soft tissue that in aggregate measure 0.8 x 0.2 x 0.1 cm. The specimen is totally submitted in one cassette. / ELLEN:analilia 01/09/20 TC:3 CPT: 30784 x2, 67526
--- NOTE | 2020-01-09 09:33 | OP.EGD_ITS ---
Patient Name: Fede Pedersen Procedure Date: 01/09/2020 8:12 AM Date of : 1975 Age: 44 Procedure: Upper GI endoscopy Indications: Suspected gastro-esophageal reflux disease Providers: Dennis Gómez MD Referring MD: Matthew Burk Medicines: Monitored Anesthesia Care Patient Profile: This is a 44 year old male. Refer to note in patient chart for documentation of history and physical. Complications: No immediate complications. Estimated blood loss: Minimal. Procedure: Pre-Anesthesia Assessment: - Prior to the procedure, a History and Physical was performed, and patient medications and allergies were reviewed. The patient's tolerance of previous anesthesia was also reviewed. The risks and benefits of the procedure and the sedation options and risks were discussed with the patient. All questions were answered, and informed consent was obtained. Prior Anticoagulants: The patient has taken no previous anticoagulant or antiplatelet agents. After reviewing the risks and benefits, the patient was deemed in satisfactory condition to undergo the procedure. After obtaining informed consent, the endoscope was passed under direct vision. Throughout the procedure, the patient's blood pressure, pulse, and oxygen saturations were monitored continuously. The gastroscope was introduced through the mouth, and advanced to the second part of duodenum. The upper GI endoscopy was accomplished without difficulty. The patient tolerated the procedure well. Scope In: 9:12:01 AM Scope Out: 9:14:53 AM Total Procedure Duration Time 0 hours 2 minutes 52 seconds Findings: Esophagitis with no bleeding was found. Biopsies were taken with a cold forceps for histology. The stomach was normal. The examined duodenum was normal. Biopsies were taken with a cold forceps in the gastric antrum for Helicobacter pylori testing. Impression: - Reflux esophagitis. Biopsied. - Normal stomach. - Normal examined duodenum. - Biopsies were taken with a cold forceps for Helicobacter pylori testing. Recommendation: - Discharge patient to home. - Resume previous diet. - Continue present medications. - Await pathology results. Procedure Code(s): --- Professional --- 24036, Esophagogastroduodenoscopy, flexible, transoral; with biopsy, single or multiple Diagnosis Code(s): --- Professional --- K21.0, Gastro-esophageal reflux disease with esophagitis CPT copyright 2017 [employer] [place] [employer]. All rights reserved. The codes documented in this report are preliminary and upon management architect review may be revised to meet current compliance requirements. Dennis Gómez MD 01/09/2020 9:32:48 AM This report has been signed electronically. Number of Addenda: 0 Note Initiated On: 01/09/2020 8:12 AM
--- NOTE | 2020-01-09 09:33 | OP.CCLET_ITS ---
01/09/2020 Matthew Burk Re : Upper GI endoscopy procedure for Fede Pedersen Dear Bhargavi This procedure was performed on Thursday, January 09, 2020. My impressions and recommendations are as follows: Impressions : - Reflux esophagitis. Biopsied. - Normal stomach. - Normal examined duodenum. - Biopsies were taken with a cold forceps for Helicobacter pylori testing. Recommendations : - Discharge patient to home. - Resume previous diet. - Continue present medications. - Await pathology results. My findings are described in the full procedure note, which is enclosed. If I can be of further assistance, please feel free to contact me at Doctor phone number(s): , Work: . Sincerely, Dennis Gómez MD 01/09/2020 9:32:48 AM This report has been signed electronically.
--- NOTE | 2020-01-09 09:34 | OP.COLON_ITS ---
Patient Name: Fede Pedersen Procedure Date: 01/09/2020 9:17 AM Date of : 1975 Age: 44 Procedure: Colonoscopy Indications: Rectal bleeding Providers: Dennis Gómez MD Referring MD: Matthew Burk Medicines: Monitored Anesthesia Care Patient Profile: This is a 44 year old male. Refer to note in patient chart for documentation of history and physical. Last Colonoscopy: none. The patient's first colonoscopy is today. Complications: No immediate complications. Procedure: Pre-Anesthesia Assessment: - Prior to the procedure, a History and Physical was performed, and patient medications and allergies were reviewed. The patient's tolerance of previous anesthesia was also reviewed. The risks and benefits of the procedure and the sedation options and risks were discussed with the patient. All questions were answered, and informed consent was obtained. Prior Anticoagulants: The patient has taken no previous anticoagulant or antiplatelet agents. After reviewing the risks and benefits, the patient was deemed in satisfactory condition to undergo the procedure. After I obtained informed consent, the scope was passed under direct vision. Throughout the procedure, the patient's blood pressure, pulse, and oxygen saturations were monitored continuously. The Colonoscope was introduced through the anus and advanced to the cecum, identified by appendiceal orifice and ileocecal valve. The colonoscopy was performed without difficulty. The patient tolerated the procedure well. The quality of the bowel preparation was good. Scope In: 9:18:26 AM Scope Withdrawal Time 0 hours 6 minutes 14 seconds Scope Out: 9:29:33 AM Total Procedure Duration Time 0 hours 11 minutes 7 seconds Findings: The entire examined colon appeared normal on direct and retroflexion views. Impression: - The entire examined colon is normal on direct and retroflexion views. - No specimens collected. Recommendation: - Discharge patient to home. - Resume previous diet. - Continue present medications. - Repeat colonoscopy in 10 years for screening purposes. Procedure Code(s): --- Professional --- 94033, Colonoscopy, flexible; diagnostic, including collection of specimen(s) by brushing or washing, when performed (separate procedure) Diagnosis Code(s): --- Professional --- K62.5, Hemorrhage of anus and rectum CPT copyright 2017 [employer]. All rights reserved. The codes documented in this report are preliminary and upon transactional attorney review may be revised to meet current compliance requirements. Dennis Gómez MD 01/09/2020 9:33:56 AM This report has been signed electronically. Number of Addenda: 0 Note Initiated On: 01/09/2020 9:17 AM
--- NOTE | 2020-01-09 09:34 | OP.CCLET_ITS ---
01/09/2020 Matthew Burk Re : Colonoscopy procedure for Fede Pedersen Dear Bhargavi This procedure was performed on Thursday, January 09, 2020. My impressions and recommendations are as follows: Impressions : - The entire examined colon is normal on direct and retroflexion views. - No specimens collected. Recommendations : - Discharge patient to home. - Resume previous diet. - Continue present medications. - Repeat colonoscopy in 10 years for screening purposes. My findings are described in the full procedure note, which is enclosed. If I can be of further assistance, please feel free to contact me at Doctor phone number(s): , Work: . Sincerely, Dennis Gómez MD 01/09/2020 9:33:56 AM This report has been signed electronically.
[2020-01-09 09:35] VITALS: BP 121/75; BP 141/91; PULSE 84; RESP 14; TEMP 37.3; O2SAT 100
[2020-01-09 09:40] VITALS: BP 123/79; BP 141/91; PULSE 85; RESP 16; O2SAT 97
[2020-01-09 09:45] VITALS: BP 123/80; BP 141/91; PULSE 74; RESP 16; O2SAT 96
[2020-01-09 09:52] VITALS: BP 120/85; BP 141/91; PULSE 68; RESP 17; TEMP 36.4; O2SAT 97
[2020-01-09 11:18] VITALS: BP 141/91
== END 2020-01-09 11:20 | disposition home or self-care (01) ==
LOC: EN 08:23 → AC 08:25
PROVIDERS: PCP Family Medicine; Referring Provider Family Medicine; Visit Provider Surgery
PROC: 0DJD8ZZ Inspection of Lower Intestinal Tract, Via Natural or Artificial Opening Endoscopic (ICD-10-PCS; CPT 45378; principal; 2020-01-09 09:25)
DX: K62.5 Hemorrhage of anus and rectum (principal); K29.70 Gastritis, unspecified, without bleeding; K21.0 Gastro-esophageal reflux disease with esophagitis
CPT/HCPCS: 43239; 45378; 88305; 88313; 88342; J7120; J2405

== ENCOUNTER 2020-06-21 13:35 | Emergency (ER) | payer OTHER, SELFPAY ==
[2020-06-21 13:35] VITALS: BP 160/86; PULSE 77; RESP 16; TEMP 36.6; O2SAT 100; BMI 35.5
--- NOTE | 2020-06-21 13:56 | ED.VIS.GEN ---
History of Present Illness Chief Complaint: Numb/Ting Detail of Chief Complaint: Swelling, redness and itching right upper extremity Informant: Patient Onset: Days - Onset Sunday Context: Sudden Onset Timing: Continuous Quality: Tightness, swelling, redness, itching and paresthesia stocking glove distri Location: Right upper extremity Current Severity: Mild Maximum Severity: Moderate Worsened by: Itching and tightness with movement Relieved by: Nothing Associated Symptoms: Paresthesia stocking glove distribution since this morning Narrative: Patient is a 44-year-old [id number]-[id number] male who presents because of redness, itching, swelling right arm and proximal right forearm. He was stung by a bee on Sunday. He presents because he is concerned about numbness in a stocking glove distribution from the shoulder to the tips of all of his fingers and thumb. Patient states his arm and forearm feel tight when he flexes at the elbow. He denies any systemic symptoms. He denies fever or chills. There is no history medic fever, heart murmur, mitral valve prolapse or immunosuppression. Prior similar symptoms: No Recent Illness/Hospitalization: No - Past Medical History (1) No significant past medical history Status: Acute Past Medical History - Allergies and Home Meds Allergies/Adverse Reactions: Allergies No Known Allergies Allergy (Verified 06/21/20 13:38) Primary Care Physician: Matthew Burk MD [Primary Care Provider] - Prior records reviewed: No Past Medical History: None Surgical History: - - appy,right rotator cuff Lives: Spouse/ Significant Other, With Family Smoking Status: Never smoker Drugs: None - Family History Maternal Family History: Family History (Last Reviewed 01/02/20 @ 08:26 by Amy Purcell) Father Diabetes Heart disease Family History: Reports: - - grandpa had kidney problems, mother with htn Paternal Family History: Family History (Last Reviewed 01/02/20 @ 08:26 by Amy Purcell) Father Diabetes Heart disease Family History: Reports: - - father is diabetic, with leaky heart valve Review of Systems General: Denies: Chills, Fever, Malaise, Subjective, Sweats ENT: Denies: Rhinorrhea, Sore throat Cardiovascular: Denies: Chest pain, Palpitations Respiratory: Denies: Dyspnea, Cough, Dyspnea on exertion Gastrointestinal: Denies: Nausea, Vomiting Musculoskeletal: Reports: Swelling. Denies: Myalgias, Arthralgias, Extremity Pain Skin: Reports: Rash. Denies: Wounds Neurological: Denies: Headache, Weakness Allergy: Denies: Uticaria, Swelling of the mouth, Swelling of the tongue Physical Exam Vital Signs/Narrative: Vital Signs Temp Pulse Resp BP Pulse Ox 06/21/20 13:35 97.8 F 77 16 160/86 H 100 Inital Vital Signs reviewed: Yes General: Well nourished, Well developed, No Acute Distress Head: Normocephalic, Atraumatic Eyes: Perrl, EOMI. Negative for: Pale conjunctiva, Scleral icterus ENT: - - There is no evidence of angioedema. Trachea is midline. There is no inspiratory expiratory stridor. Cardiovascular: Regular rate, Regular rhythm, No murmurs, Normal S1, Normal S2 Respiratory: No distress, CTA bilaterally, Chest nontender Extremities: Nontender, Edema - There is no epitrochlear or axillary lymphadenopathy., - - Axillary, median, radial and ulnar function intact. Biceps, brachialis and triceps reflex are 1+ and symmetric. Radial pulses palpable. Skin: Normal color, Rash - There is a blanching warm erythematous rash involving the proximal volar right forearm and medial right arm. Neurological: Alert, Oriented x3, Cranial nerves II-XII grossly intact, Normal Strength, Normal Sensation Psychological: Normal affect Diagnostic/Tx/Re-eval - Medical Decision Making Endings are consistent with local skin infection. There may be a secondary infection i.e. cellulitis. Patient has no systemic symptoms. He was prescribed H2 anand since he is taking an antihistamine. He also was prescribed antibiotic. ED Disposition - Plan for ED Patient: Disposition: Home or Assisted Living Diagnosis: Allergic reaction to bee sting, Cellulitis of left upper limb Instructions: ED General Allergic Reactions, ED Cellulitis Prescriptions: Doxycycline 100 mg PO BID #14 cap Transmission Status: Pending to [id number] Famotidine [Pepcid] 20 mg PO BID #10 tab Transmission Status: Pending to [id number] Referrals: Matthew Burk MD [Primary Care Provider] - 3-5 Days
== END 2020-06-21 14:40 | disposition home or self-care (01) ==
LOC: ED 14:39
PROVIDERS: Emergency Provider Emergency Medicine; PCP Family Medicine
DX: T63.441A Toxic effect of venom of bees, accidental (unintentional), initial encounter (principal); L03.114 Cellulitis of left upper limb
CPT/HCPCS: 99282; A4216

== ENCOUNTER 2022-12-08 02:13 | Emergency (ER) | payer BC, SELFPAY ==
[2022-12-08 02:14] VITALS: BP 146/95; PULSE 76; RESP 15; TEMP 36.6; O2SAT 99; BMI 35.4
--- NOTE | 2022-12-08 02:43 | CT_ITS ---
INDICATION: syncope EXAMINATION: CT BRAIN - CT Head or Brain W/O Contrast Injection TECHNIQUE: Multiple axial images were obtained of the head without intravenous contrast. A radiation dose optimization technique was used for this scan. IV Contrast dosage and agent: None. COMPARISON: FINDINGS: BRAIN PARENCHYMA: No intra- or extra-axial hemorrhage. No evidence of acute infarct. No intracranial mass or mass effect. There is preservation of the hager/white matter interface. Posterior fossa structures are unremarkable. CSF SPACES: Appropriate for age. No hydrocephalus. Basal cisterns are patent. CALVARIUM, SKULL BASE, PARANASAL SINUSES AND MASTOID AIR CELLS: Clear. No discrete lytic or blastic abnormalities. ORBITS: Both globes, extraocular muscles, optic nerves and retrobulbar fat appear unremarkable. ASPECTS Score for Acute Strokes: 10 CT/Brain/Head without Contrast IMPRESSION: Negative Brain CT without contrast. Electronically Signed: Michael Herrera MD at 3:41 EST ,
--- NOTE | 2022-12-08 02:43 | CT_ITS ---
INDICATION: trauma EXAMINATION: CT CERVICAL SPINE - CT Spine Cervical W/O Contrast Injection TECHNIQUE: Helically acquired images were obtained of the cervical spine. 2D reformatted images were reviewed. A radiation dose optimization technique was used for this scan. IV Contrast dosage and agent: None. COMPARISON: None. FINDINGS: Normal craniovertebral junction. Normal anterior atlantoaxial articulation. Normal odontoid process. There is straightening of the normal cervical lordosis. Normal vertebral bodies and posterior osseous elements. C2-3, C3-4, C4-5: Normal endplates. Normal disc height and morphology. Normal central canal and intervertebral neuroforamina. C5-6, C6-7: Endplate spondylosis. Central and paracentral disc bulge. Degenerative changes of the bilateral facet joints and uncovertebral joints. Enhi-yi-vsjmgzbb narrowing of the central canal and the bilateral intervertebral neural foramina. C7-T1: Normal endplates. Normal disc height and morphology. Normal central canal and intervertebral neuroforamina. Normal visualized soft tissue structures. CT/Spine Cervical without Contras IMPRESSION: Multilevel degenerative changes, as described above. Electronically Signed: Michael Herrera MD at 3:39 EST ,
--- NOTE | 2022-12-08 02:43 | CT_ITS ---
INDICATION: injury EXAMINATION: CT LUMBAR SPINE - CT Spine Lumbar W/O Contrast Injection TECHNIQUE: Helically acquired images were obtained of the lumbar spine. 2D reformats were reviewed. A radiation dose optimization technique was used for this scan. IV Contrast dosage and agent: None. COMPARISON: None. FINDINGS: VERTEBRAE: No fracture or traumatic subluxation. No discrete lytic or blastic abnormality observed. Normal alignment. DISCS and SPINAL CANAL: Disc heights are preserved. No critical stenosis. VISUALIZED ABDOMEN: Visualized abdominal aorta is not dilated. There is no retroperitoneal adenopathy. CT/Spine Lumbar without Contrast IMPRESSION: No evidence of acute lumbar spinal fracture or spondylolisthesis. Electronically Signed: Michael Herrera MD at 3:42 EST ,
--- NOTE | 2022-12-08 02:43 | CT_ITS ---
INDICATION: injury EXAMINATION: CT THORACIC SPINE - CT Spine Thoracic W/O Contrast Injection TECHNIQUE: Helically acquired images were obtained of the thoracic spine. 2D reformats were reviewed. A radiation dose optimization technique was used for this scan. IV Contrast dosage and agent: None. COMPARISON: None. FINDINGS: VERTEBRAE: No fracture. No discrete lytic or blastic abnormality observed. VERTEBRAL ALIGNMENT: Unremarkable. There is preservation of the normal thoracic kyphosis. DISCS: Disc heights are preserved. VISUALIZED THORAX: Visualized thoracic aorta is nondilated. Lung river are clear. CT/Spine Thoracic without Contras IMPRESSION: No evidence of acute thoracic spinal fracture or spondylolisthesis. Electronically Signed: Michael Herrera MD at 3:43 EST ,
[2022-12-08] MEDS: 0.9% Normal Saline 1,000 ML 999 ML IV (02:49)
[2022-12-08 02:55] LABS: Absolute Lymphocyte Count 1.05 X10^3/uL (0.83-4.51); Basophil# 0.01 X10^3/uL; Basophil% 0.2 % (0-1); Eosinophil# 0.03 X10^3/uL; Eosinophils% 0.5 % (0-5); Hematocrit 45.4 % (40-54); Lymphocyte # 1.05 X10^3/ul (0.83-4.51); Mean Corp Hgb Conc 35.2 g/dL (32-36); Mean Corpuscular Hgb 31.1 pg (27.0-32.0); Mean Corpuscular Volume 88.2 fL (80-94); Monocyte% 7.2 % (0-10); NRBC Flagged by Analyzer 0 % (0-5); Neutrophil # 4.02 X10^3/uL (2.7-7.7); Neutrophil % 72.9 % (47-70); Platelet Count 215 K/mm3 (150-450); RBC Distribution Width CV 12.3 % (11.6-14.6); RBC Distribution Width SD 39.5 fl (35.1-43.9); Red Blood Count 5.15 M/mm3 (4.6-6.2); White Blood Count 5.5 K/mm3 (4.4-11.0)
[2022-12-08 03:13] LABS: Anion Gap 9 (5-15); BUN 16 mg/dL (7-18); BUN/Creat Ratio 15.7 RATIO (10-20); Calcium,Total 9.3 mg/dL (8.5-10.1); Chloride 106 mmol/L (98-107); Creatinine, Serum 1.02 mg/dL (0.70-1.30); EST Glomerular Filtration Rate 84 mL/min (>60); Est Glom Filt Rate - Afr Amer 101 mL/min (>60); Estimated Creatinine Clearance 94.43 ml/min; Glucose 131 mg/dL (74-106); Magnesium 2.5 mg/dL (1.6-2.6); Potassium 3.4 mmol/L (3.5-5.1); Sodium Level 141 mmol/L (136-145); Troponin-I HS 3 pg/mL (3.0-78.0)
[2022-12-08 03:14] VITALS: BP 133/86; PULSE 72; RESP 15; O2SAT 98
[2022-12-08 03:37] LABS: Lactic Acid 1.2 mmol/L (0.4-1.9)
--- NOTE | 2022-12-08 04:08 | EDS_ITS ---
HPI History of Present Illness Chief Complaint: Syncope Narrative Narrative: Patient is a 47-year-old male who presents with syncope versus seizure. Patient reports no past medical history. He was here in the ER with his who is being evaluated for a separate cause. Patient states that he has been standing most of the night and he remembers being standing next to his and then he remembers waking up on the floor. Patient states that he does not remember feeling any type of chest pain or palpitations prior to the event. He states that he has not stopped any medications recently and that there are no new medications. He also denies any alcohol or illicit drug use. He does report mild headache along with neck and back pain at this time [facility] Medical History (Updated 12/08/22 @ 04:[address] Gregg Bañuelos DO) Back pain Hay fever Hemorrhoids Hx of chest pain hx of normal stress test Seasonal allergies Shoulder pain Home Medications NK 12/08/22 [History Last Taken Unknown] Allergy/AdvReac Type Severity Reaction Status Date / Time No Known Allergies Allergy Verified 12/08/22 02:17 Family History Father Diabetes Heart disease Surgical History S/P appendectomy S/P tonsillectomy Status post arthroscopy of right shoulder Social History (Updated 01/02/20 @ 16:[address] Dennis Gómez MD) Smoking Status: Never smoker alcohol intake: never ROS ROS ED Constitutional Constitutional ED: Denies chills or fever(s) Eyes Eyes: Denies change in vision ENT ENT ED: Denies sore throat Cardiovascular Cardiovascular: Denies chest pain or palpitations Respiratory/Chest Respiratory/Chest: Denies cough or dyspnea Gastrointestinal Gastrointestinal: Reports nausea; Denies abdominal pain, diarrhea or vomiting Genitourinary Genitourinary ED: Denies dysuria Musculoskeletal Musculoskeletal: Reports back pain and neck pain Integumentary Denies Abrasions or rash Neurologic Neurologic: Reports headache(s) and other Details: Positive syncope Hematologic/Lymphatic Hematologic/Lymphatic: Denies easy bleeding or easy bruising EXAM Physical Exam Const Vital Signs: 12/08/22 02:14 12/08/22 02:14 12/08/22 03:14 Temperature 97.8 F Temperature Source Temporal Pulse Rate 76 72 Respiratory Rate 15 15 Respiratory Effort Normal Non-Labored Respiratory Pattern Normal Blood Pressure 146/95 H 133/86 H Blood Pressure Mean 112 101 Pulse Ox 99 98 Oxygen Delivery Method Room Air Room Air 12/08/22 04:12 Temperature Temperature Source Pulse Rate 85 Respiratory Rate 20 H Respiratory Effort Respiratory Pattern Blood Pressure 138/70 H Blood Pressure Mean Pulse Ox 99 Oxygen Delivery Method Positive well nourished and well developed General Appearance ED: well developed HEENT Reports moist mucous membranes HEENT Narrative: Normocephalic atraumatic. No tongue or cheek biting noted Eyes PERRL and EOMs intact bilaterally Neck supple Neck Narrative: No bony deformity or step-off of the cervical spine but there is mild midline pain with palpation Chest Wall palpation of chest normal Resp normal respiratory effort and clear to auscultation bilaterally Cardio regular rate and regular rhythm Rate: other Other Details: Radial pulses are plus 2 out of 4 bilaterally are equal and symmetric GI normal to inspection, nondistended, normoactive bowel sounds, non-tender, non- distended and no masses GI Narrative: No voluntary guarding or rigidity no pulsatile mass Auscultation: normoactive bowel sounds Palpation: soft Back/Spine Back/Spine Narrative: No bony deformity or step-off of the thoracic or lumbar spine but there is midline pain on palpation of both the upper thoracic and upper lumbar spinal regions Extremity normal to inspection Extremity Narrative: Pelvis is stable there is no shortening or external rotation of either lower extremity No bony deformity or joint effusion noted Neuro oriented x3 and CN's II-XII intact bilaterally Neuro Narrative: Cranial nerves II through XII are grossly intact there are no focal neurologic deficits. No pronator drift no dysmetria no truncal ataxia. NIH stroke scale score of 0 Sensorium / Orientation: alert Psych Psych Narrative: Patient has a flat affect Skin Skin Narrative: No abrasions or ecchymosis noted MDM MDM MDM Narrative Medical decision making narrative: Patient was in the ER with his who was being evaluated for separate issue. The nurse walked into the room and found him lying on his back with his eyes closed. He did not respond to voice but when she moved his leg he did open his eyes and began responding. He did not have an apparent postictal phase as he could answer questions although he was slow to respond. He stated that he was unsure of what happened but did not remember having chest pain or palpitations and he also denied any recent new medication or withdrawal from medication as a cause of his symptoms. He was placed in a c-collar as he had midline neck pain moved onto a backboard and then placed onto a bed. Because of the syncope versus seizure as well as concern for underlying trauma CTs of the head cervical spine thoracic and lumbar spine were obtained. All imaging revealed no clinica lly significant findings. Blood work also revealed no clinically significant changes and his lactic acid was normal going against seizure activity. At the end of the work-up the patient is awake alert and oriented he can stand and ambulate without any difficulty and has had no further bouts of syncope or questionable seizure activity while being evaluated in the ER as the patient. Therefore with a one-time event and negative work-up I do not feel there is need for further investigation in the ER or admission and he is otherwise safe for discharge Lab Data Attestation: I reviewed the patient's lab results. Labs: Laboratory Results - last 24 hr 12/08/22 12/08/22 12/08/22 02:07 02:49 02:49 WBC 5.5 RBC 5.15 Hgb 16.0 Hct 45.4 MCV 88.2 MCH 31.1 MCHC 35.2 RDW Std Deviation 39.5 RDW Coeff of Joycelyn 12.3 Plt Count 215 MPV 10.0 Immature Gran % (Auto) 0.200 Neut % (Auto) 72.9 H Lymph % (Auto) 19.0 [place] % (Auto) 7.2 Eos % (Auto) 0.5 Baso % (Auto) 0.2 Absolute Neuts (auto) 4.0 Absolute Lymphs (auto) 1.05 Nucleated RBC % 0 Sodium 141 Potassium 3.4 L Chloride 106 Carbon Dioxide 26.0 Anion Gap 9 BUN 16 Creatinine 1.02 Estim Creat Clear Calc 94.43 Est GFR (MDRD) Af Amer 101 Est GFR (MDRD) Non-Af 84 BUN/Creatinine Ratio 15.7 Glucose 131 H Lactic Acid Calcium 9.3 Magnesium 2.5 Troponin I High Sens 3 POC Glucose 111 H 12/08/22 02:49 WBC RBC Hgb Hct MCV MCH MCHC RDW Std Deviation RDW Coeff of Joycelyn Plt Count MPV Immature Gran % (Auto) Neut % (Auto) Lymph % (Auto) [place] % (Auto) Eos % (Auto) Baso % (Auto) Absolute Neuts (auto) Absolute Lymphs (auto) Nucleated RBC % Sodium Potassium Chloride Carbon Dioxide Anion Gap BUN Creatinine Estim Creat Clear Calc Est GFR (MDRD) Af Amer Est GFR (MDRD) Non-Af BUN/Creatinine Ratio Glucose Lactic Acid 1.2 Calcium Magnesium Troponin I High Sens POC Glucose Radiography Diagnostic Testing: Clinical Impression(s) from Imaging Studies Brain CT 12/08/22 02:43 IMPRESSION: Negative Brain CT without contrast. Electronically Signed: Michael Herrera MD at 3:41 EST , Cervical Spine CT 12/08/22 02:43 IMPRESSION: Multilevel degenerative changes, as described above. Electronically Signed: Michael Herrera MD at 3:39 EST , Lumbar Spine CT 12/08/22 02:43 IMPRESSION: No evidence of acute lumbar spinal fracture or spondylolisthesis. Electronically Signed: Michael Herrera MD at 3:42 EST , Thoracic Spine CT 12/08/22 02:43 IMPRESSION: No evidence of acute thoracic spinal fracture or spondylolisthesis. Electronically Signed: Michael Herrera MD at 3:43 EST , Discharge Plan Triage Chief Complaint: Syncope ED Provider: Gregg Bañuelos Dx/Rx/DC Orders Clinical Impression: Syncope and collapse Instructions: Causes of Syncope Prescriptions: No Action NK Primary Care Provider: Matthew Burk Referrals: Matthew Burk MD [Primary Care Provider] - Activity Restrictions/Additional Instructions: Your work-up today showed no signs of trauma or brain injury and your labs revealed no clinically significant changes. Your history and exam indicate you had a bout of syncope/passing out. Please follow-up your family doctor for repeat evaluation and return to the ER should you have any further concerns Disposition Disposition: Home, Self Care Discharge Date/Time: 12/08/22 04:19
[2022-12-08 04:12] VITALS: BP 138/70; PULSE 85; RESP 20; O2SAT 99
[2022-12-08 09:36] LABS: Bedside Glucose 111 mg/dL (74-106)
== END 2022-12-08 04:19 | disposition home or self-care (01) ==
PROVIDERS: Emergency Provider Emergency Medicine; PCP Family Medicine; Visit Provider Emergency Medicine
DX: R55 Syncope and collapse (principal)
CPT/HCPCS: 70450; 72125; 72128; 72131; 80048; 82962; 83605; 83735; 84484; 85025; 99283; J7030; A4216

== ENCOUNTER → 2023-12-13 | Outpatient (CLI) | payer OTHER, SELFPAY ==
[2023-12-13 18:49] LABS: PSA,Total- Diagnostic 0.39 ng/mL (0.0-4.0)
== END | disposition home or self-care (01) ==
LOC: MFPLAB 16:16
PROVIDERS: PCP Family Medicine; Visit Provider Family Medicine
DX: N41.9 Inflammatory disease of prostate, unspecified (principal)
CPT/HCPCS: 36415; 84153